=== PATIENT | male | born 1970 | race Caucasian/White ===

== ENCOUNTER 2019-03-08 22:49 | Emergency (ER) | payer OTHER ==
[2019-03-08 22:52] VITALS: BP 119/79
[2019-03-08] MEDS ORDERED: LET GEL TOPICAL 1 EA SYR TP ONE (23:04)
[2019-03-08] MEDS ORDERED: TDAP ADULT 0.5 ML INJ (BOOSTRIX) IM ONE (23:04)
--- NOTE | 2019-03-08 23:04 | EDPHY ---
H & P Stated Complaint: tripped over a step and fell no LOC laceration to head Time Seen by Provider: 03/08/19 23:01 HPI/ROS: HPI: This is a 48-year-old male who presents with Chief Complaint: tripped over a step and fell no LOC laceration to head Location: Occipital scalp Quality: Laceration Duration: 1 hr prior to arrival Signs and Symptoms: + bleeding, no radiation, no numbness, no weakness, no tingling, no incontinence, no decreased range of motion, no swelling, + pain, no fever no nausea, no vomiting, no photophobia, no noise sensitivity, no neck stiffness Timing: Acute Severity: Mild Context: Patient was walking out of the house in an area that they renovating the house when he accidentally tripped over 2 x 4 that was on the ground and fell backwards hitting his head on a piece of wood. He hit the piece of wood as he was going down to the ground. He reports that he was going outside to feed the dogs. The heard a loud sound which was him hitting his head and came to his side immediately. Patient reports that he felt immediate, constant , moderate pain but denies any at this time. Denies LOC/neck pain/dizziness/ nausea/vomiting/amnesia. Ambulatory without any deficits after the injury. Tetanus is up-to-date. Not on any blood thinners. at bedside reports that patient is mentating at baseline. Modifying Factors: Direct pressure Comment: ROS: A comprehensive 10 system review of systems is otherwise negative aside from elements mentioned in the history of present illness. MEDICAL/SURGICAL/SOCIAL HISTORY: Medical history: Generally healthy. Does not take any regular medications. Surgical history: Denies Social history: and has children. Family history noncontributory. CONSTITUTIONAL: Physically fit middle-aged white male, and daughter at bedside, awake and alert, no obvious distress HEENT: 3.5 cm laceration occipital no active bleeding. and normocephalic, PERRL, EOMI. no globe entrapment, no raccoon eyes. no [place] signs.Tympanic membranes clear. No tympanic membrane rupture. Nares patent; no septal hematoma. Oropharynx clear, no exudate and moist pink mucosa. No malocclusion. no dental trauma. Airway patent. No lymphadenopathy. NECK: supple, no midline tenderness, flexion 45 degrees, extension 45 degrees, right and left lateral flexion 45 degrees. No meningismus. Cardiovascular: Normal S1/S2, regular rate, regular rhythm, without murmur rub or gallop. PULMONARY/CHEST: Symmetrical and nontender. no crepitus. Clear to auscultation bilaterally. Good air movement. No accessory muscle usage. ABDOMEN: Soft, nondistended, nontender. EXTREMITIES: 2/2 pulses, strength 5/5, DIP/PIP/MCP flexion/extension intact with good light touch sensation. no deformities, no clubbing, no cyanosis, no edema. NEUROLOGICAL: no focal neuro deficits. GCS 15. Light touch sensation intact. Speech fluent. Cranial nerves 2-12 grossly intact. SKIN: Warm and dry, no erythema. no rash. Good capillary refill. Source: Patient, Family () Exam Limitations: No limitations - Personal History Current Tetanus/Diphtheria Vaccine: Yes Current Tetanus Diphtheria and Acellular Pertussis (TDAP): Yes - Medical/Surgical History Hx Asthma: No Hx Chronic Respiratory Disease: No Hx Diabetes: No Hx Cardiac Disease: No Hx Renal Disease: No Hx Cirrhosis: No Hx Alcoholism: No Hx HIV/AIDS: No Hx Splenectomy or Spleen Trauma: No Other PMH: ANKLE SURGERY - Social History Smoking Status: Never smoked Constitutional: Initial Vital Signs Temperature (C) 36.5 C 03/08/19 22:49 Heart Rate 76 03/08/19 22:49 Respiratory Rate 16 03/08/19 22:49 Blood Pressure 119/79 03/08/19 22:49 O2 Sat (%) 94 03/08/19 22:49 O2 Delivery Mode Room Air Allergies/Adverse Reactions: No Known Allergies Allergy (Verified 03/08/19 22:52) Home Medications: Medication Instructions Recorded NK [No Known Home Meds] 03/08/19 Medical Decision Making Procedures: Procedure: Laceration repair. Verbal consent was obtained from the patient. The 3.5 cm, simple, linear laceration on the occipital scalp was anesthetized in the usual fashion using LET topical. The wound was irrigated, draped and explored to its base with a gloved finger. There were no deep structures involved. No tendon injury was identified. The wound was repaired with #3 moira. Good hemostasis was achieved and patient tolerated procedure well. Bacitracin applied. The procedure was performed by myself. ED Course/Re-evaluation: Vital signs reviewed and stable upon arrival. Based on nexus protocol, head CT imaging not indicated Tetanus booster given. LET topical applied and copiously irrigated Laceration repaired with 3 moira Bacitracin applied Verbal and written wound care instructions provided Discuss concussion precautions although patient is not exhibiting any signs at this time. No signs of neurovascular compromise/tenting of skin/compartment syndrome/ extremities and joints examined above and below area of concern and are neurovascularly intact. This patient was seen under the supervision of my secondary supervising physician. I evaluated and cared for this patient with attending. Differential Diagnosis: Head injury including but not limited to concussion, skull fracture, intraparenchymal contusion, subarachnoid, subdural and epidural hematoma. Departure - Departure Disposition: Home, Routine, Self-Care Clinical Impression: Laceration of occipital region of scalp without complication Qualifiers: Encounter type: initial encounter Qualified Code(s): S01.01XA - Laceration without foreign body of scalp, initial encounter Condition: Good Instructions: Staple Care (ED), Head Injury (ED), Facial Laceration (ED) Additional Instructions: Keep the laceration dry for 48 hours. After 48 hours, you may wash the site daily with mild soap and water; then pat dry. Apply topical antibiotic ointment daily until fully healed. Do not soak in a bathtub or go swimming until moira are removed. Take Tylenol 650 mg every 4 hours and/or Ibuprofen 600 mg every 8 hours with food as needed for pain. Wound Care Follow-Up: Removal of moira in [ 7 ] days. Staple removal is complimentary in uncomplicated cases. Infection or abnormal findings would require reevaluation by the MD. In that case, you may be billed. You sustained a closed head injury and it is recommended that you observe concussion precautions for 12 hr status post injury. Consume a minimum of 8-10 glasses of water or electrolyte fluid replacement drinks that include Gatorade, Powerade, Pedialyte. You are to be closely monitored and observed for the 12 hr following initial injury time. Return to the ER immediately if you have progressive headaches, neurologic deficits, gait abnormality, visual disturbance, slurred speech, or any other symptom that concerns you. Referrals: Verena Loaiza MD [Medical Doctor] - As per Instructions
== END 2019-03-08 23:29 | disposition home or self-care (01) ==
PROC: 0HQ0XZZ Repair Scalp Skin, External Approach (ICD-10-PCS; principal; 2019-03-08)
DX: S01.01XA Laceration without foreign body of scalp, initial encounter (principal); W01.198A Fall on same level from slipping, tripping and stumbling with subsequent striking against other object, initial encounter; Y92.008 Other place in unspecified non-institutional (private) residence as the place of occurrence of the external cause; Y93.K9 Activity, other involving animal care